=== PATIENT | male | born 1985 | race Asian ===

== ENCOUNTER 2017-10-27 21:02 | Emergency (ER) | payer OTHER ==
[~2017-10-27] VITALS: Ht 167.6 cm; Wt 68.0 kg
[2017-10-27] MEDS ORDERED: VALIUM5 MG PO (21:43)
[2017-10-27] MEDS ORDERED: PEPCID20 MG PO (21:43)
[2017-10-27] MEDS ORDERED: MEDROL4 MG PO (21:43)
[2017-10-27] MEDS ORDERED: ROBAXIN-750750 MG PO (21:43)
[2017-10-27] MEDS ORDERED: MELOXICAM7.5 MG PO (21:43)
[2017-10-27 22:32] VITALS: BP 121/75
== END 2017-10-27 22:00 | disposition home or self-care (01) ==
LOC: EEVIPCON 21:02 → FSED 21:02
DX: M54.5 Low back pain (principal); S39.012A Strain of muscle, fascia and tendon of lower back, initial encounter; Y93.89 Activity, other specified; Y99.0 Civilian activity done for income or pay
CPT/HCPCS: 99283